=== PATIENT | female | born 1965 | race American Indian/Alaskan Native ===

== ENCOUNTER 2017-05-14 12:26 | Outpatient (CLI) | payer BC ==
--- NOTE | 2017-05-14 13:34 | XRay Report ---
Left knee 4 views: Findings: The medial lateral and patellofemoral compartment appears unremarkable. Sclerotic articular surfaces. Moderate amount of fluid in the suprapatellar bursa. Impression: Mild degenerative changes with moderate amount of fluid in suprapatellar bursa.
== END 2017-05-14 12:27 | disposition home or self-care (01) ==
LOC: SPVIMAG 12:26
PROVIDERS: ATTEND Orthopaedic Surgery
DX: M17.12 Unilateral primary osteoarthritis, left knee (principal)